=== PATIENT | female | born 1985 | race Caucasian/White ===

== ENCOUNTER 2023-06-13 16:54 | Outpatient (CLI) | payer MEDICAID, SELFPAY ==
[2023-06-13] VITALS (9 sets, daily range): BP systolic 123–177; BP diastolic 68–86; PULSE 70–80; RESP 16; TEMP 36.6; O2SAT 98; BMI 46.5
[2023-06-13 17:41] LABS: Actim Prom Negative
[2023-06-13 18:25] LABS: Add Urine Microscopic? NO; Charge for UA Resulting for Rev
[2023-06-13 18:34] LABS: Basophils % 0.3 %; Eosinophils # 0.1 10^3/uL (0.0-0.8); Eosinophils % 0.5 %; Hematocrit 34.7 % (36-47); Lymphocytes # 2.5 10^3/uL (0.8-4.8); Lymphocytes % 18.4 %; Mean Corpuscular HGB Conc 34.9 g/dL (30-55); Mean Corpuscular Hemoglobin 31.7 pg (27-33); Mean Corpuscular Volume 90.8 fl (85-98); Mean Platelet Volume 10.3 fL (7.4-10.4); Monocytes % 7.5 %; Neutrophils # 9.62 10^3/uL (1.8-7.7); Neutrophils % 71.1 %; Nucleated Red Blood Cells % 0 %; Platelet Count 238 10^3/cmm (157-399); Red Blood Count 3.82 10^6/uL (3.85-5.65); Red Cell Distribution Width 13.2 % (12.1-15.1); White Blood Count 13.53 10^3/uL (3.29-11.43)
[2023-06-13 18:38] LABS: Bilirubin Urine Neg (Negative); Blood Urine Neg (Negative); Glucose Urine UA Norm (Normal); Ketones Urine Negative (Negative); Nitrate Urine Negative (Negative); Protein Urine Neg (Negative); Specific Gravity, Urine 1.005 (1.005-1.030); Urine Appearance Clear (CLEAR); Urine Color Light yellow (Yellow); pH Urine 7 (5-7)
[2023-06-13 18:39] LABS: Leukocyte Esterase Urine Negative (Negative); Urobilinogen Urine Neg (Negative)
[2023-06-13 18:50] LABS: Alanine Aminotransferase 16 U/L (0-33); Albumin Level 3.5 g/dL (3.5-5.2); Alkaline Phosphatase 84 U/L (35-105); Anion Gap 14.6 (5-19); Aspartate Amino Transferase 11 U/L (0-32); Blood Urea Nitrogen 8 mg/dL (6-20); Calcium 8.6 mg/dL (8.5-10.5); Carbon Dioxide 19 mmol/L (22-29); Chloride 106 mmol/L (98-107); Creatinine Clr Calc Pharmacy 253.3839; Globulin 2.9 g/dL (1.3-4.6); Glomerular Filtration Rate 177.7 mL/min (90-130); Glucose 91 mg/dL (65-115); Osmolality Calculated 280 mOsm/kg (285-295); Potassium 3.6 mmol/L (3.5-5.1); Sodium 136 mmol/L (136-145); Total Bilirubin 0.2 mg/dL (0.15-1.2); Total Protein 6.4 g/dL (6.6-8.7); Uric Acid 3.8 mg/dL (2.4-5.7)
[2023-06-13 18:55] LABS: Urine Creatinine 26 mg/dL (28-217); Urine Protein Random 5 mg/dL
[2023-06-13 18:56] LABS: UPRO/UCREAT Ratio 0.19 mg/mg CR
[2023-06-15 08:09] LABS: Urine Total Protein 8.3 mg/dL (0-150)
[2023-06-15 08:25] LABS: Total Volume, Urine 2025 mL; Urine Total Protein 24 Hour 168.1 mg/24hr (0-150)
== END 2023-06-14 19:26 | disposition home or self-care (01) ==
LOC: OBGYN 19:19 → OPOB 06-15 05:16 → OBGYN 06-15 05:17
PROVIDERS: Visit Provider Family Medicine
DX: Z46.89 Encounter for fitting and adjustment of other specified devices (principal); Z3A.00 Weeks of gestation of pregnancy not specified; N89.8 Other specified noninflammatory disorders of vagina; R10.9 Unspecified abdominal pain
CPT/HCPCS: 36415; 59025; 80053; 81003; 82570; 83986; 84112; 84156; 84550; 85025; 99211; G0378; G0379